=== PATIENT | female | born 1990 ===

== ENCOUNTER → 2018-03-06 | Outpatient (CLI) | payer OTHER | END | disposition home or self-care (01) | LOC: LAB SHORT 13:41 → PLD 13:41 | DX: D06.0 Carcinoma in situ of endocervix (principal) | CPT/HCPCS: 88305 ==

== ENCOUNTER → 2018-04-09 | Outpatient (CLI) | payer OTHER | END | disposition home or self-care (01) | LOC: PLD 07:57 → LAB SHORT 07:57 | DX: D06.9 Carcinoma in situ of cervix, unspecified (principal) | CPT/HCPCS: 88307 ==

== ENCOUNTER → 2019-03-11 | Outpatient (CLI) | payer OTHER ==
[2019-03-13 19:06] LABS: HPV 16 Negative (Negative); HPV 18 Negative (Negative); HPV OTHER HR TYPES Positive (Negative)
== END | disposition home or self-care (01) ==
LOC: LAB 16:29 → LAB SHORT 16:29
PROVIDERS: Obstetrics & Gynecology
DX: Z01.419 Encounter for gynecological examination (general) (routine) without abnormal findings (principal)
CPT/HCPCS: 87624; 87625; G0123

== ENCOUNTER → 2019-03-27 | Outpatient (CLI) | payer OTHER | END | disposition home or self-care (01) | LOC: PLD 15:37 → LAB SHORT 15:37 | DX: N72 Inflammatory disease of cervix uteri (principal); R87.612 Low grade squamous intraepithelial lesion on cytologic smear of cervix (LGSIL) | CPT/HCPCS: 88305 ==

== ENCOUNTER → 2020-06-02 | Outpatient (CLI) | payer OTHER ==
[2020-06-03 16:07] LABS: HPV 16 Negative (Negative); HPV 18 Negative (Negative); HPV OTHER HR TYPES Positive (Negative)
== END | disposition home or self-care (01) ==
LOC: LAB SHORT 17:14 → LAB 17:14
PROVIDERS: Obstetrics & Gynecology
DX: Z01.419 Encounter for gynecological examination (general) (routine) without abnormal findings (principal)
CPT/HCPCS: 87624; 87625; G0123

== ENCOUNTER → 2020-08-03 | Outpatient (CLI) | payer OTHER | END | disposition home or self-care (01) | LOC: LAB SHORT 15:07 → PLD 15:07 | DX: R87.810 Cervical high risk human papillomavirus (HPV) DNA test positive (principal); N72 Inflammatory disease of cervix uteri | CPT/HCPCS: 88305 ==

== ENCOUNTER → 2021-02-01 | Outpatient (CLI) | payer OTHER ==
[2021-02-02 12:11] LABS: HPV 16 Negative (Negative); HPV 18 Negative (Negative); HPV OTHER HR TYPES Positive (Negative)
== END | disposition home or self-care (01) ==
LOC: LAB 09:41 → LAB SHORT 09:41
PROVIDERS: Obstetrics & Gynecology
DX: Z09 Encounter for follow-up examination after completed treatment for conditions other than malignant neoplasm (principal); Z87.42 Personal history of other diseases of the female genital tract
CPT/HCPCS: 87624; 87625; 88142